=== PATIENT | female | born 1985 | race Caucasian/White ===

== ENCOUNTER → 2017-04-09 | Outpatient (CLI) | payer OTHER ==
[~2017-04-09] MED LIST: AMOXICILLIN500 M2 PO; AUGMENTIN 875 M1 TAB PO; AUGMENTIN 875875 MG PO; CEPHALEXIN500 M1 PO; CLARITIN10 MG PO; DARVOCET N 1001 TAB PO; DAYPRO600 M1 PO; DONNATAL1 TAB PO; ELIMITE 5%60 GM PO; ELIMITE5% T; HYDROCODONE BIT1 T11 PO; MOTRIN800 MG PO; NAPROSYN375 MG PO; PEN-VEE K500 MG PO; PHENERGAN W/DM120 ML PO; PREDNISONE10 MG PO; PROAIR HFA0.09 MG/AC IH; ULTRAM50 MG PO; VICODIN 5/500 505 MG PO; ZOFRAN ODT8 MG PO; ZYRTEC10 MG PO
[2017-04-09 16:45] LABS: FREE T4 0.93 ng/dl (0.76-1.46)
[2017-04-09 16:50] LABS: THYROID STIM HORMONE (HS) 1.11 uIU/ml (0.358-4.75)
[2017-04-10 06:10] LABS: FOLLICLE STIMULATING HORMONE 6.3 mIU/mL (.); LUTEINIZING HORMONE 004283 4.5 mIU/mL (.)
== END | disposition home or self-care (01) ==
LOC: LAB 15:45
PROVIDERS: Internal Medicine
DX: N92.6 Irregular menstruation, unspecified (principal)

== ENCOUNTER → 2017-05-01 | Outpatient (CLI) | payer OTHER | END | disposition home or self-care (01) | LOC: MAMMO 04-29 09:00 → US 09:28 | DX: N92.6 Irregular menstruation, unspecified (principal); N63 Unspecified lump in breast ==

== ENCOUNTER → 2017-05-06 | Outpatient (CLI) | payer OTHER | END | disposition home or self-care (01) | LOC: MAMMO 05-01 12:00 | DX: N63 Unspecified lump in breast (principal); N92.6 Irregular menstruation, unspecified ==

== ENCOUNTER → 2017-05-14 | Outpatient (CLI) | payer OTHER ==
[2017-05-14 10:39] LABS: CHOLESTEROL 151 mg/dL (<200); HDL CHOLESTEROL 21 mg/dl (40-60); TRIGLYCERIDES 553 mg/dl (<150)
== END | disposition home or self-care (01) ==
LOC: LAB 09:00
PROVIDERS: Internal Medicine
DX: K76.0 Fatty (change of) liver, not elsewhere classified (principal); G51.4 Facial myokymia; L81.8 Other specified disorders of pigmentation

== ENCOUNTER → 2017-05-29 | Outpatient (CLI) | payer OTHER | END | disposition home or self-care (01) | LOC: CP 10:00 | DX: G51.4 Facial myokymia (principal) ==

== ENCOUNTER → 2017-12-24 | Outpatient (CLI) | payer OTHER ==
[2017-12-24 11:04] LABS: FREE T4 0.89 ng/dl (0.76-1.46)
[2017-12-24 11:09] LABS: THYROID STIM HORMONE (HS) 1.29 uIU/ml (0.358-4.75)
[2017-12-25 06:10] LABS: FREE T3 010389 3.1 pg/mL (2.0-4.4); THYROID PEROXIDASE (TPO) AB 9 IU/mL (0-34)
[2017-12-25 13:04] LABS: THYROGLOBULIN ANTIBODY <1.0 IU/mL (0.0-0.9)
== END | disposition home or self-care (01) ==
LOC: LAB 09:45
PROVIDERS: Internal Medicine
DX: R53.83 Other fatigue (principal)

== ENCOUNTER 2018-10-31 21:51 | Emergency (ER) | payer OTHER ==
[~2018-10-31] VITALS: Ht 170.1 cm; Wt 90.7 kg
[2018-10-31] MEDS ORDERED: VITAMIN B-1000 MCG/1 PO (21:54)
[2018-10-31] MEDS ORDERED: OMEGA-3-ACID ETH1 GM PO (21:54)
[2018-10-31] MEDS ORDERED: LORAZEPAM0.5 MG PO (21:55)
[2018-10-31] MEDS ORDERED: VITAMIN E400 UNI2 PO (21:55)
[2018-10-31 21:56] VITALS: BP 144/60
[2018-10-31] MEDS ORDERED: VITAMIN D31000 UNI1 PO (21:56)
[2018-10-31] MEDS ORDERED: PREDNISONE50 MG PO (22:19)
== END 2018-10-31 22:30 | disposition home or self-care (01) ==
LOC: ED 21:51
DX: K02.9 Dental caries, unspecified (principal); G43.909 Migraine, unspecified, not intractable, without status migrainosus; Z88.5 Allergy status to narcotic agent; Z79.899 Other long term (current) drug therapy; Z90.49 Acquired absence of other specified parts of digestive tract

== ENCOUNTER 2018-11-03 00:12 | Emergency (ER) | payer OTHER ==
[~2018-11-03] VITALS: Ht 170.1 cm; Wt 99.8 kg
--- NOTE | ~2018-11-03 | EKG ---
[place], [place] ELECTROCARDIOGRAM REPORT NAME: TRINIDAD RITCHIE UNIT #: [id number] ROOM: DOCTOR: EPIPHANY DRAFT REPORT BIRTHDATE: [birth year] [facility] Test Date: 2018-11-03 Test Time: 00:27:38 Pat Name: TRINIDAD RITCHIE Department: ED Room: 2 Gender: F Riddler Operator: Sally Cloud : 1985 Requested By: JANETTE COLINDRES Order Number: [id number] Reading MD: Lynne Miller MD Measurements Intervals [place] Rate: 74 P: -11 DE: 143 QRS: 20 QRSD: 96 T: 38 QT: 367 QTc: 408 Interpretive Statements Sinus rhythm Low voltage, precordial leads Electronically Signed On 11-05-2018 9:46:54 PST by Lynne Miller MD CM:[email or web address]:ELECTROCARDIOGRAM REPORT [id number] JANETTE CORBIN DRAFT REPORT JANETTE COLINDRES DO
[~2018-11-03 00:12] MED LIST changes: +LORAZEPAM0.5 MG PO; +OMEGA-3-ACID ETH1 GM PO; +PREDNISONE50 MG PO; +VITAMIN B-1000 MCG/1 PO; +VITAMIN D31000 UNI1 PO; +VITAMIN E400 UNI2 PO
[2018-11-03 00:35] LABS: BASO # 0.1 10*3/uL (0.0-0.1); BASO % 0.7 % (0.0-1.0); EOS # 0.2 10*3/uL (0.0-0.4); EOS % 2.1 % (1.0-4.0); HEMATOCRIT 39.7 % (37.0-47.0); HEMOGLOBIN 13.5 g/dl (12.0-16.0); LYMPH # 2.6 10*3/uL (1.3-4.4); LYMPH % 35.6 % (27.0-41.0); MEAN CELL VOLUME 85.4 fl (81.0-99.0); MEAN PLATELET VOLUME 8.2 fl (9.6-12.3); MONO # 0.4 10*3/uL (0.1-1.0); MONO % 5.8 % (3.0-9.0); NEUT # 4.1 10*3/uL (2.3-7.9); NEUT % 55.7 % (47.0-73.0); PLATELET COUNT AUTOMATED 274 10*3/uL (130-400); RED BLOOD COUNT 4.65 10*6/uL (4.10-5.10); RED CELL DISTRI WIDTH 12.7 % (0-14.5); WHITE BLOOD COUNT 7.3 10*3/uL (4.8-10.8)
[2018-11-03 01:03] LABS: ALBUMIN 3.7 gm/dl (3.1-4.5); ALKALINE PHOSPHATASE 57 U/L (45-117); BUN 13 mg/dl (7-24); CHLORIDE 103 mmol/L (98-107); CREATININE 0.76 mg/dL (0.55-1.02); POTASSIUM 3.8 mmol/L (3.5-5.1); SGOT/AST 19 IU/L (3-35); SGPT/ALT 45 U/L (12-78); SODIUM 138 mmol/L (136-145); TOTAL PROTEIN 7.8 gm/dL (6.4-8.2)
[2018-11-03 01:04] LABS: BETA-HCG, QUANT < 1.0 mIU/mL (1-3); TROPONIN I < 0.015 ng/ml (<0.045)
== END 2018-11-03 01:45 | disposition home or self-care (01) ==
LOC: ED 00:12
PROVIDERS: Student in an Organized Health Care Education/Training Program
DX: R00.2 Palpitations (principal); R00.0 Tachycardia, unspecified; G43.909 Migraine, unspecified, not intractable, without status migrainosus; Z88.5 Allergy status to narcotic agent; Z79.899 Other long term (current) drug therapy; Z90.49 Acquired absence of other specified parts of digestive tract

== ENCOUNTER → 2019-06-17 | Outpatient (CLI) | payer OTHER | END | disposition home or self-care (01) | LOC: US 08:25 | DX: K76.0 Fatty (change of) liver, not elsewhere classified (principal); E07.9 Disorder of thyroid, unspecified ==

== ENCOUNTER → 2019-08-12 | Outpatient (CLI) | payer OTHER ==
[2019-08-13 08:08] LABS: RHEUMATOID ARTHRITIS FACTOR <10.0 IU/mL (0.0-13.9)
[2019-08-14 17:10] LABS: CCP ANTIBODIES IGG/IGA 15 units (0-19)
[2019-08-15 15:06] LABS: ANTI-DSDNA ANTIBODIES 096339 2 IU/mL (0-9); ANTI-RNP ANTIBODIES <0.2 AI (0.0-0.9)
== END | disposition home or self-care (01) ==
LOC: LAB 11:02
PROVIDERS: Internal Medicine
DX: R76.8 Other specified abnormal immunological findings in serum (principal)

== ENCOUNTER 2019-09-23 11:38 | Emergency (ER) | payer OTHER ==
[~2019-09-23] VITALS: Ht 167.6 cm; Wt 97.5 kg
[2019-09-23 13:01] VITALS: BP 113/71
== END 2019-09-23 14:20 | disposition home or self-care (01) ==
LOC: ED 11:38
DX: S93.402A Sprain of unspecified ligament of left ankle, initial encounter (principal); G43.909 Migraine, unspecified, not intractable, without status migrainosus; Z88.6 Allergy status to analgesic agent; Z79.899 Other long term (current) drug therapy; W22.8XXA Striking against or struck by other objects, initial encounter; Y93.89 Activity, other specified; Y92.89 Other specified places as the place of occurrence of the external cause; Y99.8 Other external cause status

== ENCOUNTER → 2020-02-10 | Outpatient (CLI) | payer OTHER | END | disposition home or self-care (01) | LOC: LAB 15:49 | PROVIDERS: Internal Medicine | DX: T14.8XXA Other injury of unspecified body region, initial encounter (principal); W57.XXXA Bitten or stung by nonvenomous insect and other nonvenomous arthropods, initial encounter ==

== ENCOUNTER 2020-06-19 18:45 | Emergency (ER) | payer OTHER ==
[~2020-06-19] VITALS: Wt 99.8 kg
[2020-06-19 18:56] VITALS: BP 151/91
[2020-06-19 19:55] LABS: BASO # 0.1 10*3/uL (0.0-0.1); BASO % 0.7 % (0.0-1.0); EOS # 0.2 10*3/uL (0.0-0.4); EOS % 2.5 % (1.0-4.0); HEMATOCRIT 39.5 % (37.0-47.0); LYMPH # 2.5 10*3/uL (1.3-4.4); LYMPH % 34.8 % (27.0-41.0); MEAN CELL VOLUME 85.9 fl (81.0-99.0); MEAN CORPUSCULAR HGB 28.3 pg (27.0-31.0); MEAN CORPUSCULAR HGB CONC 32.9 g/dl (33.0-37.0); MEAN PLATELET VOLUME 8.7 fl (9.6-12.3); MONO # 0.4 10*3/uL (0.1-1.0); MONO % 5.8 % (3.0-9.0); NEUT # 4.1 10*3/uL (2.3-7.9); NEUT % 55.9 % (47.0-73.0); PLATELET COUNT AUTOMATED 244 10*3/uL (130-400); WHITE BLOOD COUNT 7.3 10*3/uL (4.8-10.8)
[2020-06-19 20:12] LABS: ALBUMIN 3.8 gm/dl (3.1-4.5); BUN 13 mg/dl (7-24); CHLORIDE 107 mmol/L (98-107); CREATININE 0.78 mg/dL (0.55-1.02); SGOT/AST 32 IU/L (3-35); SGPT/ALT 48 U/L (12-78); SODIUM 139 mmol/L (136-145); TOTAL PROTEIN 7.9 gm/dL (6.4-8.2)
[2020-06-19 20:14] LABS: ALKALINE PHOSPHATASE 55 U/L (45-117)
[2020-06-19 20:18] LABS: TROPONIN I < 0.015 ng/ml (<0.045)
== END 2020-06-19 22:12 | disposition home or self-care (01) ==
LOC: ED 18:45
PROVIDERS: Emergency Medicine
DX: R07.89 Other chest pain (principal); M79.18 Myalgia, other site; F41.9 Anxiety disorder, unspecified; F17.200 Nicotine dependence, unspecified, uncomplicated; Z88.5 Allergy status to narcotic agent; Z79.899 Other long term (current) drug therapy

== ENCOUNTER → 2020-07-06 | Outpatient (CLI) | payer OTHER | END | disposition home or self-care (01) | LOC: MRI 12:36 | PROVIDERS: ATTEND Internal Medicine | DX: Q07.8 Other specified congenital malformations of nervous system (principal) ==

== ENCOUNTER → 2020-08-21 | Outpatient (CLI) | payer OTHER | END | disposition home or self-care (01) | LOC: COVID19 09:01 | PROVIDERS: ATTEND Internal Medicine | DX: Z20.828 Contact with and (suspected) exposure to other viral communicable diseases (principal) ==

== ENCOUNTER → 2020-09-27 | Outpatient (CLI) | payer OTHER ==
[2020-09-27 09:47] LABS: BASO % 0.4 % (0.0-1.0); EOS # 0.2 10*3/uL (0.0-0.4); EOS % 1.7 % (1.0-4.0); HEMATOCRIT 41.4 % (37.0-47.0); LYMPH # 2.9 10*3/uL (1.3-4.4); LYMPH % 30.9 % (27.0-41.0); MEAN CELL VOLUME 84.5 fl (81.0-99.0); MEAN CORPUSCULAR HGB 27.6 pg (27.0-31.0); MEAN CORPUSCULAR HGB CONC 32.6 g/dl (33.0-37.0); MEAN PLATELET VOLUME 8.2 fl (9.6-12.3); MONO # 0.4 10*3/uL (0.1-1.0); MONO % 4.6 % (3.0-9.0); NEUT # 5.7 10*3/uL (2.3-7.9); NEUT % 62.1 % (47.0-73.0); PLATELET COUNT AUTOMATED 246 10*3/uL (130-400); RED CELL DISTRI WIDTH 12.8 % (0-14.5); WHITE BLOOD COUNT 9.2 10*3/uL (4.8-10.8)
[2020-09-27 10:18] LABS: ALBUMIN 3.6 gm/dl (3.1-4.5); BUN 8 mg/dl (7-24); CHLORIDE 108 mmol/L (98-107); POTASSIUM 3.6 mmol/L (3.5-5.1); SODIUM 137 mmol/L (136-145)
[2020-09-27 10:30] LABS: ALKALINE PHOSPHATASE 64 U/L (45-117); CREATININE 0.84 mg/dL (0.55-1.02); FREE T4 0.91 ng/dl (0.76-1.46); SGOT/AST 22 IU/L (3-35); SGPT/ALT 39 U/L (12-78); TOTAL PROTEIN 7.9 gm/dL (6.4-8.2)
== END | disposition home or self-care (01) ==
LOC: LAB 09:28
PROVIDERS: ATTEND Internal Medicine
DX: R00.2 Palpitations (principal)

== ENCOUNTER → 2020-10-10 | Outpatient (CLI) | payer OTHER | END | disposition home or self-care (01) | LOC: CARD 09:24 | PROVIDERS: ATTEND Internal Medicine | DX: R00.2 Palpitations (principal) ==

== ENCOUNTER 2020-12-23 03:17 | Emergency (ER) | payer OTHER ==
[2020-12-23 03:22] VITALS: BP 153/91
== END 2020-12-23 03:51 | disposition home or self-care (01) ==
LOC: ED 03:17
DX: F41.9 Anxiety disorder, unspecified (principal); Z88.5 Allergy status to narcotic agent; Z98.890 Other specified postprocedural states; Z98.51 Tubal ligation status; Z90.49 Acquired absence of other specified parts of digestive tract

== ENCOUNTER 2021-02-09 02:09 | Emergency (ER) | payer OTHER ==
[~2021-02-09] VITALS: Ht 170.1 cm; Wt 99.8 kg
[2021-02-09 02:17] VITALS: BP 149/98
[2021-02-09 02:57] LABS: BASO # 0.1 10*3/uL (0.0-0.1); BASO % 0.6 % (0.0-1.0); EOS # 0.2 10*3/uL (0.0-0.4); EOS % 1.9 % (1.0-4.0); HEMATOCRIT 37.8 % (37.0-47.0); LYMPH # 2.3 10*3/uL (1.3-4.4); LYMPH % 29.5 % (27.0-41.0); MEAN CELL VOLUME 83.3 fl (81.0-99.0); MEAN CORPUSCULAR HGB CONC 33.6 g/dl (33.0-37.0); MEAN PLATELET VOLUME 8.7 fl (9.6-12.3); MONO # 0.5 10*3/uL (0.1-1.0); MONO % 6.6 % (3.0-9.0); NEUT # 4.7 10*3/uL (2.3-7.9); PLATELET COUNT AUTOMATED 223 10*3/uL (130-400); RED BLOOD COUNT 4.54 10*6/uL (4.10-5.10); RED CELL DISTRI WIDTH 12.5 % (0-14.5); WHITE BLOOD COUNT 7.7 10*3/uL (4.8-10.8)
[2021-02-09 03:20] LABS: ALBUMIN 3.7 gm/dl (3.1-4.5); ALKALINE PHOSPHATASE 51 U/L (45-117); BUN 11 mg/dl (7-24); CHLORIDE 109 mmol/L (98-107); CREATININE 0.75 mg/dL (0.55-1.02); POTASSIUM 3.3 mmol/L (3.5-5.1); SGOT/AST 23 IU/L (3-35); SGPT/ALT 46 U/L (12-78); SODIUM 136 mmol/L (136-145); TOTAL PROTEIN 7.6 gm/dL (6.4-8.2)
== END 2021-02-09 03:57 | disposition home or self-care (01) ==
LOC: ED 02:09
PROVIDERS: Internal Medicine
DX: E87.6 Hypokalemia (principal); H61.21 Impacted cerumen, right ear; F41.9 Anxiety disorder, unspecified; Z88.5 Allergy status to narcotic agent; Z79.899 Other long term (current) drug therapy; Z90.49 Acquired absence of other specified parts of digestive tract; Z98.890 Other specified postprocedural states; Z98.51 Tubal ligation status

== ENCOUNTER 2021-02-13 23:20 | Emergency (ER) | payer OTHER ==
[~2021-02-13] VITALS: Ht 170.1 cm; Wt 99.8 kg
[2021-02-13 23:27] VITALS: BP 148/92
== END 2021-02-14 01:55 | disposition home or self-care (01) ==
LOC: ED 23:20
DX: R42 Dizziness and giddiness (principal); Z88.5 Allergy status to narcotic agent; Z79.899 Other long term (current) drug therapy; Z98.890 Other specified postprocedural states

== ENCOUNTER → 2021-02-15 | Outpatient (CLI) | payer OTHER | END | disposition home or self-care (01) | LOC: LAB 12:48 | PROVIDERS: ATTEND Internal Medicine | DX: F41.9 Anxiety disorder, unspecified (principal); R53.83 Other fatigue ==

== ENCOUNTER 2021-02-21 06:34 | Emergency (ER) | payer OTHER ==
[~2021-02-21] VITALS: Ht 170.1 cm; Wt 99.8 kg
[2021-02-21 07:32] LABS: BASO # 0.1 10*3/uL (0.0-0.1); BASO % 0.6 % (0.0-1.0); EOS # 0.1 10*3/uL (0.0-0.4); EOS % 1.1 % (1.0-4.0); HEMATOCRIT 40.5 % (37.0-47.0); LYMPH # 1.7 10*3/uL (1.3-4.4); LYMPH % 20.3 % (27.0-41.0); MEAN CELL VOLUME 83.7 fl (81.0-99.0); MEAN CORPUSCULAR HGB 28.1 pg (27.0-31.0); MEAN CORPUSCULAR HGB CONC 33.6 g/dl (33.0-37.0); MEAN PLATELET VOLUME 8.9 fl (9.6-12.3); MONO # 0.5 10*3/uL (0.1-1.0); MONO % 5.4 % (3.0-9.0); NEUT # 6.1 10*3/uL (2.3-7.9); NEUT % 72.2 % (47.0-73.0); PLATELET COUNT AUTOMATED 259 10*3/uL (130-400); RED BLOOD COUNT 4.84 10*6/uL (4.10-5.10); RED CELL DISTRI WIDTH 12.4 % (0-14.5); WHITE BLOOD COUNT 8.5 10*3/uL (4.8-10.8)
[2021-02-21 07:48] LABS: ALKALINE PHOSPHATASE 50 U/L (45-117); BETA-HCG, QUANT < 1.0 mIU/mL (1-3); BUN 8 mg/dl (7-24); CHLORIDE 107 mmol/L (98-107); CREATININE 0.84 mg/dL (0.55-1.02); LIPASE 172 U/L (73-393); POTASSIUM 3.5 mmol/L (3.5-5.1); SGOT/AST 21 IU/L (3-35); SGPT/ALT 44 U/L (12-78); SODIUM 138 mmol/L (136-145); TOTAL PROTEIN 7.9 gm/dL (6.4-8.2)
[2021-02-21 18:53] VITALS: BP 133/98
== END 2021-02-21 19:07 | disposition short-term general hospital (02) ==
LOC: ED 06:34
PROVIDERS: Emergency Medicine
DX: G93.2 Benign intracranial hypertension (principal); Z79.899 Other long term (current) drug therapy

== ENCOUNTER → 2021-02-28 | Outpatient (CLI) | payer OTHER | END | disposition home or self-care (01) | LOC: CARD 02-22 10:00 | PROVIDERS: ATTEND Internal Medicine | DX: R00.0 Tachycardia, unspecified (principal); R00.1 Bradycardia, unspecified ==

== ENCOUNTER → 2021-03-22 | Outpatient (CLI) | payer OTHER ==
[2021-03-22 07:40] LABS: BASO % 0.7 % (0.0-1.0); EOS # 0.1 10*3/uL (0.0-0.4); HEMATOCRIT 38.6 % (37.0-47.0); LYMPH # 1.9 10*3/uL (1.3-4.4); LYMPH % 35.5 % (27.0-41.0); MEAN CELL VOLUME 83.9 fl (81.0-99.0); MEAN CORPUSCULAR HGB 28.3 pg (27.0-31.0); MEAN CORPUSCULAR HGB CONC 33.7 g/dl (33.0-37.0); MEAN PLATELET VOLUME 8.7 fl (9.6-12.3); MONO # 0.4 10*3/uL (0.1-1.0); NEUT % 54.6 % (47.0-73.0); PLATELET COUNT AUTOMATED 249 10*3/uL (130-400); RED CELL DISTRI WIDTH 12.8 % (0-14.5); WHITE BLOOD COUNT 5.4 10*3/uL (4.8-10.8)
[2021-03-22 07:56] LABS: FREE T4 1.05 ng/dl (0.76-1.46)
[2021-03-22 08:01] LABS: THYROID STIM HORMONE (HS) 1.55 uIU/ml (0.358-4.75)
[2021-03-23 07:06] LABS: PROLACTIN 14.5 ng/mL (4.8-23.3)
[2021-03-23 08:09] LABS: FOLLICLE STIMULATING HORMONE 5.3 mIU/mL (.); LUTEINIZING HORMONE 2.5 mIU/mL (.)
[2021-03-27 14:09] LABS: TESTOSTERONE FREE, (DIRECT) 2.5 pg/mL (0.0-4.2)
== END | disposition home or self-care (01) ==
LOC: LAB 07:19
PROVIDERS: ATTEND Nurse Practitioner Women's Health
DX: E04.1 Nontoxic single thyroid nodule (principal); N95.1 Menopausal and female climacteric states; N93.9 Abnormal uterine and vaginal bleeding, unspecified

== ENCOUNTER → 2021-03-26 | Outpatient (CLI) | payer OTHER | END | disposition home or self-care (01) | LOC: US 16:51 | PROVIDERS: ATTEND Nurse Practitioner Women's Health | DX: E04.9 Nontoxic goiter, unspecified (principal); E04.1 Nontoxic single thyroid nodule ==

== ENCOUNTER 2021-08-20 11:24 | Emergency (ER) | payer OTHER ==
[~2021-08-20] VITALS: Ht 170.1 cm; Wt 94.8 kg
[2021-08-20] MEDS ORDERED: ACETAZOLAMIDE125 MG PO (11:37)
[2021-08-20 14:05] VITALS: BP 122/71
== END 2021-08-20 15:15 | disposition home or self-care (01) ==
LOC: ED 11:24
DX: G43.909 Migraine, unspecified, not intractable, without status migrainosus (principal); Z88.6 Allergy status to analgesic agent; Z79.899 Other long term (current) drug therapy

== ENCOUNTER → 2021-09-14 | Outpatient (CLI) | payer OTHER ==
[~2021-09-14] MED LIST changes: +ACETAZOLAMIDE125 MG PO
[2021-09-14 10:57] LABS: BASO % 0.5 % (0.0-1.0); EOS # 0.2 10*3/uL (0.0-0.4); HEMATOCRIT 41.4 % (37.0-47.0); LYMPH # 2.4 10*3/uL (1.3-4.4); LYMPH % 27.6 % (27.0-41.0); MEAN CELL VOLUME 84.5 fl (81.0-99.0); MEAN CORPUSCULAR HGB 27.8 pg (27.0-31.0); MEAN CORPUSCULAR HGB CONC 32.9 g/dl (33.0-37.0); MEAN PLATELET VOLUME 8.5 fl (9.6-12.3); MONO # 0.6 10*3/uL (0.1-1.0); MONO % 6.2 % (3.0-9.0); NEUT # 5.6 10*3/uL (2.3-7.9); NEUT % 63.5 % (47.0-73.0); PLATELET COUNT AUTOMATED 246 10*3/uL (130-400); RED CELL DISTRI WIDTH 12.9 % (0-14.5); WHITE BLOOD COUNT 8.8 10*3/uL (4.8-10.8)
[2021-09-14 11:10] LABS: ALBUMIN 3.7 gm/dl (3.1-4.5); ALKALINE PHOSPHATASE 56 U/L (45-117); BUN 8 mg/dl (7-24); CHLORIDE 110 mmol/L (98-107); CHOLESTEROL 165 mg/dL (<200); CREATININE 0.73 mg/dL (0.55-1.02); FREE T4 0.81 ng/dl (0.76-1.46); LDL CHOLESTEROL 83 mg/dL (9-159); POTASSIUM 3.7 mmol/L (3.5-5.1); SGOT/AST 12 IU/L (3-35); SGPT/ALT 22 U/L (12-78); SODIUM 141 mmol/L (136-145); TOTAL PROTEIN 7.3 gm/dL (6.4-8.2); TRIGLYCERIDES 237 mg/dl (<150)
[2021-09-14 12:45] LABS: VITAMIN D, 25-HYDROXY 13.4 ng/mL (30-100)
== END | disposition home or self-care (01) ==
LOC: LAB 10:22
PROVIDERS: ATTEND Internal Medicine
DX: E78.1 Pure hyperglyceridemia (principal); F41.9 Anxiety disorder, unspecified; G43.009 Migraine without aura, not intractable, without status migrainosus

== ENCOUNTER → 2021-09-27 | Outpatient (CLI) | payer OTHER ==
[2021-09-27 10:06] LABS: CHLORIDE 107 mmol/L (98-107); POTASSIUM 3.4 mmol/L (3.5-5.1); SODIUM 138 mmol/L (136-145)
[2021-09-27 10:22] LABS: ALBUMIN 3.8 gm/dl (3.1-4.5); BUN 8 mg/dl (7-24); CREATININE 0.69 mg/dL (0.55-1.02); FREE T4 0.97 ng/dl (0.76-1.46); IRON 46 ug/dL (50-170); TOTAL IRON BINDING CAPACITY 369 ug/dl (250-450)
[2021-09-27 11:13] LABS: VITAMIN D, 25-HYDROXY 26.2 ng/mL (30-100)
[2021-09-28 06:07] LABS: THYROID PEROXIDASE (TPO) AB 12 IU/mL (0-34)
[2021-09-30 14:07] LABS: THYROGLOBULIN ANTIBODY <1.0 IU/mL (0.0-0.9)
== END | disposition home or self-care (01) ==
LOC: LAB 08:41
PROVIDERS: ATTEND Internal Medicine
DX: E04.9 Nontoxic goiter, unspecified (principal); E23.6 Other disorders of pituitary gland; R53.83 Other fatigue; E55.9 Vitamin D deficiency, unspecified

== ENCOUNTER → 2021-10-23 | Outpatient (CLI) | payer OTHER | END | disposition home or self-care (01) | LOC: MAMMO 09:43 | PROVIDERS: ATTEND Internal Medicine | DX: R92.8 Other abnormal and inconclusive findings on diagnostic imaging of breast (principal); N63.20 Unspecified lump in the left breast, unspecified quadrant ==

== ENCOUNTER → 2022-02-04 | Outpatient (CLI) | payer OTHER | END | disposition home or self-care (01) | LOC: US 15:50 | PROVIDERS: ATTEND Internal Medicine | DX: E01.0 Iodine-deficiency related diffuse (endemic) goiter (principal) ==

== ENCOUNTER → 2022-06-24 | Outpatient (CLI) | payer OTHER | END | disposition home or self-care (01) | LOC: US 08:30 | PROVIDERS: ATTEND Nurse Practitioner Women's Health | DX: N94.6 Dysmenorrhea, unspecified (principal); N92.1 Excessive and frequent menstruation with irregular cycle ==

== ENCOUNTER → 2022-07-04 | Outpatient (CLI) | payer OTHER ==
[2022-07-04 09:58] LABS: ALKALINE PHOSPHATASE 57 U/L (45-117); BUN 15 mg/dl (7-24); CHLORIDE 110 mmol/L (98-107); CREATININE 0.77 mg/dL (0.55-1.02); FREE T4 0.93 ng/dl (0.76-1.46); POTASSIUM 3.7 mmol/L (3.5-5.1); SGOT/AST 24 IU/L (3-35); SGPT/ALT 44 U/L (12-78); SODIUM 140 mmol/L (136-145); TOTAL PROTEIN 8.1 gm/dL (6.4-8.2)
[2022-07-04 11:29] LABS: VITAMIN D, 25-HYDROXY 20.9 ng/mL (30-100)
[2022-07-05 06:08] LABS: DHEA SULFATE 99.2 ug/dL (57.3-279.2); FOLLICLE STIMULATING HORMONE 1.9 mIU/mL (.); LUTEINIZING HORMONE 4.3 mIU/mL (.); PROGESTERONE 7.9 ng/mL (.); PROLACTIN 15.8 ng/mL (4.8-23.3); THYROID PEROXIDASE (TPO) AB 14 IU/mL (0-34)
[2022-07-07 22:06] LABS: THYROGLOBULIN ANTIBODY <1.0 IU/mL (0.0-0.9)
== END | disposition home or self-care (01) ==
LOC: LAB 09:00
PROVIDERS: ATTEND Internal Medicine
DX: E78.5 Hyperlipidemia, unspecified (principal); R53.83 Other fatigue; E04.9 Nontoxic goiter, unspecified; E55.9 Vitamin D deficiency, unspecified; E23.6 Other disorders of pituitary gland

== ENCOUNTER 2023-02-02 16:43 | Emergency (ER) | payer OTHER ==
[~2023-02-02] VITALS: Ht 170.1 cm; Wt 99.8 kg
[2023-02-02 16:51] VITALS: BP 149/91
[2023-02-02 17:19] LABS: BASO # 0.1 10*3/uL (0.0-0.1); BASO % 0.7 % (0.0-1.0); EOS # 0.2 10*3/uL (0.0-0.4); EOS % 2.7 % (1.0-4.0); HEMATOCRIT 39.6 % (37.0-47.0); LYMPH # 1.9 10*3/uL (1.3-4.4); LYMPH % 28.5 % (27.0-41.0); MEAN CELL VOLUME 82.5 fl (81.0-99.0); MEAN CORPUSCULAR HGB 27.5 pg (27.0-31.0); MEAN CORPUSCULAR HGB CONC 33.3 g/dl (33.0-37.0); MEAN PLATELET VOLUME 8.6 fl (9.6-12.3); MONO # 0.4 10*3/uL (0.1-1.0); MONO % 5.8 % (3.0-9.0); NEUT # 4.2 10*3/uL (2.3-7.9); NEUT % 62.2 % (47.0-73.0); PLATELET COUNT AUTOMATED 234 10*3/uL (130-400); RED CELL DISTRI WIDTH 12.9 % (0-14.5); WHITE BLOOD COUNT 6.8 10*3/uL (4.8-10.8)
[2023-02-02 17:27] LABS: BILIRUBIN Negative (Negative); BLOOD Negative (Negative); CLARITY Clear (Clear); GLUCOSE Negative (Negative); KETONE Negative (Negative); LEUKO ESTERASE Negative (Negative); NITRITE Negative (Negative)
[2023-02-02 17:30] LABS: COLOR Yellow (Yellow)
[2023-02-02 17:35] LABS: BACTERIA TRACE; RBC 0-2 rbc/hpf (0-2); WBC 0-2 wbc/hpf (0-5)
[2023-02-02 17:44] LABS: ALKALINE PHOSPHATASE 58 U/L (46-116); BUN 7 mg/dl (9-23); CHLORIDE 109 mmol/L (98-107); LIPASE 56 U/L (12-53); POTASSIUM 3.7 mmol/L (3.4-5.1); SGPT/ALT 42 U/L (10-49); TOTAL PROTEIN 7.1 gm/dL (6.0-8.0)
== END 2023-02-02 19:38 | disposition home or self-care (01) ==
LOC: ED 16:43
PROVIDERS: Nurse Practitioner Family
DX: R10.2 Pelvic and perineal pain (principal); R10.30 Lower abdominal pain, unspecified; F41.9 Anxiety disorder, unspecified; Z88.5 Allergy status to narcotic agent; Z90.49 Acquired absence of other specified parts of digestive tract; Z98.51 Tubal ligation status; Z98.890 Other specified postprocedural states

== ENCOUNTER → 2024-11-08 | Outpatient (CLI) | payer BC ==
[2024-11-08 09:59] LABS: BASO # 0.1 10*3/uL (0.0-0.1); EOS # 0.2 10*3/uL (0.0-0.4); EOS % 1.7 % (1.0-4.0); HEMATOCRIT 41.3 % (37.0-47.0); MEAN CELL VOLUME 83.9 fl (81.0-99.0); MEAN CORPUSCULAR HGB 27.2 pg (27.0-31.0); MEAN CORPUSCULAR HGB CONC 32.4 g/dl (33.0-37.0); MEAN PLATELET VOLUME 8.6 fl (9.6-12.3); MONO # 0.6 10*3/uL (0.1-1.0); MONO % 6.6 % (3.0-9.0); NEUT # 5.3 10*3/uL (2.3-7.9); PLATELET COUNT AUTOMATED 250 10*3/uL (130-400); RED BLOOD COUNT 4.92 10*6/uL (4.10-5.10); RED CELL DISTRI WIDTH 12.9 % (0-14.5); WHITE BLOOD COUNT 9.1 10*3/uL (4.8-10.8)
[2024-11-08 10:34] LABS: ALKALINE PHOSPHATASE 58 U/L (46-116); BUN 11 mg/dl (9-23); CHLORIDE 108 mmol/L (98-107); CHOLESTEROL 152 mg/dL (<200); LDL CHOLESTEROL 85 mg/dL (9-159); POTASSIUM 3.6 mmol/L (3.4-5.1); SGPT/ALT 31 U/L (5-49); TOTAL PROTEIN 7.6 gm/dL (6.0-8.0); TRIGLYCERIDES 171 mg/dl (<150)
== END | disposition home or self-care (01) ==
LOC: LAB 01:21 → US 10:00
PROVIDERS: ATTEND Internal Medicine
DX: D17.79 Benign lipomatous neoplasm of other sites (principal); E78.1 Pure hyperglyceridemia; G93.2 Benign intracranial hypertension; M54.6 Pain in thoracic spine

== ENCOUNTER → 2024-11-17 | Outpatient (CLI) | payer BC | END | disposition home or self-care (01) | LOC: MAMMO 00:11 | PROVIDERS: ATTEND Internal Medicine | DX: Z12.31 Encounter for screening mammogram for malignant neoplasm of breast (principal); L98.9 Disorder of the skin and subcutaneous tissue, unspecified; E78.1 Pure hyperglyceridemia; G93.2 Benign intracranial hypertension; M54.6 Pain in thoracic spine ==

== ENCOUNTER → 2025-01-13 | Outpatient (CLI) | payer BC | END | disposition home or self-care (01) | LOC: RAD 12:40 | PROVIDERS: ATTEND Internal Medicine | DX: M77.32 Calcaneal spur, left foot (principal); M72.2 Plantar fascial fibromatosis; M79.672 Pain in left foot ==

== ENCOUNTER → 2025-02-17 | Outpatient (CLI) | payer BC | END | disposition home or self-care (01) | LOC: LAB 11:08 | PROVIDERS: ATTEND Internal Medicine | DX: R21 Rash and other nonspecific skin eruption (principal) ==